=== PATIENT | male | born 1990 | race Caucasian/White ===

== ENCOUNTER 2022-05-08 07:44 | Day surgery (SDC) | payer BC, OTHER ==
[~2022-05-08 07:44] MED LIST: Lactated Ringers 1,000 ML IV SCH; Lidocaine 2% 5 ML SDV ONE; Propofol 200 MG/20 ML SDV ONE
[2022-05-08] MEDS ORDERED: fentaNYL 100 MCG/2 ML SDV ONE (09:29)
[2022-05-08] MEDS ORDERED: Propofol 200 MG/20 ML SDV ONE (09:51)
[2022-05-08] MEDS ORDERED: Lactated Ringers 1,000 ML IV SCH (10:15)
[2022-05-08 11:09] VITALS: BP 116/64; PULSE 72
== END 2022-05-08 10:35 | disposition home or self-care (01) ==
LOC: MW.SDS 07:44
PROVIDERS: ATTEND Surgery
DX: Z12.11 Encounter for screening for malignant neoplasm of colon (principal); D12.8 Benign neoplasm of rectum; F17.220 Nicotine dependence, chewing tobacco, uncomplicated; Z98.890 Other specified postprocedural states; Z79.899 Other long term (current) drug therapy; Z80.0 Family history of malignant neoplasm of digestive organs
CPT/HCPCS: 00812; J2704; J3010; J3490; J7120